=== PATIENT | female | born 1940 | race Two or more races ===

== ENCOUNTER 2017-06-17 23:12 | Inpatient (IN) | payer OTHER ==
[~2017-06-17] VITALS: Ht 154.9 cm; Wt 61.2 kg
--- NOTE | 2017-06-17 23:17 | NUR ---
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 WAITING FOR MD ROSE.
[2017-06-17 23:38] LABS: BASOPHILS % (AUTO) 0.2 % (0.0-2.0); EOSINOPHILS # (AUTO) 0.1 /CMM (0.0-0.7); EOSINOPHILS % (AUTO) 1.8 % (0.0-6.0); HEMATOCRIT 41 % (33-45); HEMOGLOBIN 13.8 g/dL (11.5-14.8); LYMPHOCYTES # (AUTO) 2.2 /CMM (0.8-4.8); LYMPHOCYTES % (AUTO) 27.1 % (20.0-44.0); MEAN CORPUSCULAR HEMOGLOBIN 30 PG (26.0-33.0); MEAN CORPUSCULAR HGB CONC 34 g/dl (31.0-36.0); MEAN CORPUSCULAR VOLUME 87 fL (82-100); MONOCYTES # (AUTO) 0.6 /CMM (0.1-1.30); MONOCYTES % (AUTO) 7.1 % (2.0-12.0); NEUTROPHILS # (AUTO) 5.1 /CMM (1.8-8.9); NEUTROPHILS % (AUTO) 63.8 % (43.0-81.0); PLATELET COUNT (AUTO) 191 /CMM (150-450); RDW COEFFICIENT OF VARIATION 13.5 (11.5-15.0); WHITE BLOOD COUNT (AUTO) 7.9 K/uL (4.3-11.0)
--- NOTE | 2017-06-17 23:39 | NUR ---
BLOOD SENT TO LAB
[2017-06-17 23:52] LABS: CALCIUM, SERUM 9.3 mg/dL (8.5-10.1); CARBON DIOXIDE 27 mmol/L (21-32); CHLORIDE 105 mmol/L (98-107); CREATININE 0.7 mg/dL (0.6-1.3); GLUCOSE 137 mg/dL (74-106); POTASSIUM 3.8 mmol/L (3.5-5.1); SODIUM SERUM 140 mmol/L (136-145); UREA NITROGEN, BLOOD 20 mg/dL (7-18)
[2017-06-17] MEDS ORDERED: LISI10TA5 PO (23:56)
[2017-06-17] MEDS ORDERED: AMLO10TA2 PO (23:56)
[2017-06-17] MEDS ORDERED: ASPI81TA2 PO (23:56)
--- NOTE | 2017-06-17 23:59 | NUR ---
PAGED DR. BOSCH
[2017-06-18] VITALS (11 sets, daily range): BP systolic 136–179; BP diastolic 78–108
[2017-06-18 00:05] LABS: B-TYPE NATRIURETIC PEPTIDE 108 PG/ML (0-125); INR 0.95 (0.87-1.13); PROTHROMBIN TIME 9.9 SECS (9.5-12.7)
[2017-06-18 00:21] LABS: TROPONIN I < 0.017 ng/mL (0.00-0.056)
--- NOTE | 2017-06-18 01:30 | NUR ---
REPORT GIVEN TO DONTAE CHAIDEZ FOR CONTINUATION OF CARE.
--- NOTE | 2017-06-18 01:35 | NUR ---
PT TRANSFERED TO VIA [facility]ULT[facility]
--- NOTE | 2017-06-18 01:40 | NUR ---
VACUUM TESTER CANS OPENING NOTES: RECEIVED PT WITH ROBBIE FROM ER NURSE, LOS. PT IS A/OX3-4 AND IS FRENCH SPEAKING ONLY. ROBBIE DID ALL THE TRANSLATING AT BEDSIDE. PT IS ON TELE BOX. INFORMED PT THAT SHE IS NPO EXCEPT MEDS. PT HAS IV ON L AC #20G AND IS PATENT AND INTACT. WILL START ON FLUIDS SOON ONCE IV BAG IS OBTAINED FROM GOVERNMENT TEACHER. WILL CONTINUE TO MONITOR PT.
[2017-06-18] MEDS ORDERED: ACETAMINOPHEN 325 MG TABLET PO PRN (02:00)
[2017-06-18] MEDS ORDERED: METOPROLOL TARTRATE 25 MG TABLET ONE (02:03)
[2017-06-18] MEDS: METOPROLOL TARTRATE 25 MG TABLET PO SCH ×3 (02:07→16:40)
[2017-06-18] MEDS ORDERED: IV PREMIX 0.45% NS + KCL 1,000 ML IV ONE (02:10)
--- NOTE | 2017-06-18 02:35 | NUR ---
CHEMICAL PROCESS PROJECT ENGINEER NOTES: HAD TO MANUALLY ADMINISTER IV BAG SINCE IT WAS OVERRODE BY NURSING DIESEL POWER SHOVEL OPERATOR.
--- NOTE | 2017-06-18 07:10 | NUR ---
RN NOTES PT IS RESTING IN BED COMFORTABLY WITH ROBBIE AT THE BEDSIDE. PT ON RA, RESPIRATIONS ARE EVEN AND UNLABORED. IV ON LAC INTACT AND RUNNING KCL 20MEQ 1/2 NS @ 70ML/HR. SAFETY MEASURES ARE IN PLACE, CALL LIGHT IS IN REACH. WILL CONTINUE TO MONITOR.
--- NOTE | 2017-06-18 07:20 | NUR ---
HOME VISIT FIELD CARE MANAGER CLOSING NOTES: ALL NEEDS WERE ATTENDED AND ANTICIPATED FOR. PT IS RESTING IN BED COMFORTABLY. PT IS A/OX3-4 AND IS OMANI SPEAKING ONLY. GRANDSON DID ALL THE TRANSLATING AT BEDSIDE. PT IS ON TELE BOX. TELE BOX READING SHOWS SR 61. INFORMED PT AND GRANDSON THAT SHE IS TO REMAIN NPO PER DR ORDERS. PT HAS IV ON L AC #20G AND IS BEING INFUSED WITH KCL 20MEQ IN IV 0.45 NS AT 70ML/HR. ENDORSED TO AM NURSE FOR NAIN.
[2017-06-18] MEDS ORDERED: PANTOPRAZOLE 40 MG TABLET.DR PO SCH (07:30)
[2017-06-18 08:18] LABS: BASOPHILS % (AUTO) 0.2 % (0.0-2.0); EOSINOPHILS # (AUTO) 0.1 /CMM (0.0-0.7); EOSINOPHILS % (AUTO) 0.7 % (0.0-6.0); HEMATOCRIT 43 % (33-45); HEMOGLOBIN 14.3 g/dL (11.5-14.8); LYMPHOCYTES % (AUTO) 22.9 % (20.0-44.0); MEAN CORPUSCULAR HEMOGLOBIN 30 PG (26.0-33.0); MEAN CORPUSCULAR HGB CONC 34 g/dl (31.0-36.0); MEAN CORPUSCULAR VOLUME 88 fL (82-100); MONOCYTES # (AUTO) 0.5 /CMM (0.1-1.30); MONOCYTES % (AUTO) 5.5 % (2.0-12.0); NEUTROPHILS # (AUTO) 6.3 /CMM (1.8-8.9); NEUTROPHILS % (AUTO) 70.7 % (43.0-81.0); PLATELET COUNT (AUTO) 195 /CMM (150-450); RDW COEFFICIENT OF VARIATION 13.3 (11.5-15.0); RED BLOOD CELL COUNT(AUTO) 4.86 MIL/uL (4.0-5.2); WHITE BLOOD COUNT (AUTO) 8.9 K/uL (4.3-11.0)
[2017-06-18] MEDS ORDERED: ATOR40TA PO (08:29)
[2017-06-18] MEDS ORDERED: METO25TA20 PO (08:29)
[2017-06-18 08:31] LABS: CALCIUM, SERUM 9.1 mg/dL (8.5-10.1); CARBON DIOXIDE 25 mmol/L (21-32); CHLORIDE 106 mmol/L (98-107); CREATININE 0.6 mg/dL (0.6-1.3); GLUCOSE 100 mg/dL (74-106); POTASSIUM 4.3 mmol/L (3.5-5.1); SODIUM SERUM 144 mmol/L (136-145); UREA NITROGEN, BLOOD 13 mg/dL (7-18)
[2017-06-18] MEDS ORDERED: ASPIRIN 81 MG TAB.CHEW PO SCH ×2 (09:00)
[2017-06-18] MEDS ORDERED: LISINOPRIL (10MG) 10 MG TABLET PO SCH (09:00)
[2017-06-18] MEDS ORDERED: ENOXAPARIN SODIUM 60 MG/0.6 ML DISP.SYRIN SQ SCH (09:00)
[2017-06-18] MEDS ORDERED: ATORVASTATIN 40 MG TABLET PO SCH (09:00)
[2017-06-18] MEDS ORDERED: AMLODIPINE BESYLATE 10 MG TABLET PO SCH (09:00)
[2017-06-18 09:07] LABS: CHOLESTEROL 267 mg/dL (<200); HDL CHOLESTEROL 40 mg/dL (40-60); LDL 172 mg/dL (0-99); TRIGLYCERIDES 190 mg/dL (30-150)
[2017-06-18 09:09] LABS: THYROID STIMULATING HORMONE 2.199 uIU/mL (0.358-3.74)
[2017-06-18 09:31] LABS: PHOSPHORUS 3.3 mg/dL (2.5-4.9)
--- NOTE | 2017-06-18 18:32 | NUR ---
RN NOTES PT IS RESTING IN BED, COMFORTABLY. PT ON RA, RESPIRATIONS ARE EVEN AND UNLABORED. IV ON LAC INTACT AND PATENT, RUNNING KCL 20 MEQ IN 1/2NS @ 70ML/HR. ALL MEDS WERE GIVEN ORDERED AND ALL PT NEEDS MET. PT AWAITING TO BE TRANSFERRED TO ANOTHER HOSPITAL FOR CARDIAC PROCEDURE. SAFETY MEASURES ARE IN PLACE, CALL LIGHT IS IN REACH. WILL ENDORSE TO PROTECTIVE SIGNAL INSTALLER HELPER RN FOR CONTINUITY OF CARE.
--- NOTE | 2017-06-18 19:30 | NUR ---
RN OPENING NOTES PATIENT IS IN BED, ALERT AND ORIENTED X4, GE[place]GI[place]/LEBANESE SPEAKING. FAMILY PRESENT AT BEDSIDE. VS STABLE. NO C/O PAIN AT THIS TIME. RESPIRATIONS ARE EVEN AND UNLABORED. IV ON LAC INTACT AND PATENT. INFUSING KCL 20 MEQ IN 1/2NS @ 70ML/HR. NO REDNESS OR INFILTRATION NOTED. BED IN LOW AND LOCKED POSITION. SIDE RAILS X2. CALL LIGHT WITHIN EASY REACH. WILL CONTINUE MONITOR AND ASSESS DURING THE SHIFT.
--- NOTE | 2017-06-18 22:20 | NUR ---
RN CLOSING NOTE PATIENT TRANSFERRED TO [facility] FOR CARDIAC CATH PROCEDURE. PICKED UP BY AMBULANCE. ALERT AND ORIENTED X4. FAMILY PRESENT AT BEDSIDE. VS STABLE. NO ACUTE DISTRESS NOTED. NO C/O ANY PAIN AT THIS TIME. BELONGINGS PACKED AND GIVEN TO THE PATIENT. REPORT GIVEN TO DM LAW. PATIENT REFUSED FLU AND PNU VACCINES. ALL MEDICATIONS GIVEN PER MD ORDER.
== END 2017-06-18 22:35 | disposition short-term general hospital (02) | DRG 190 ==
LOC: ER 23:15 → TELE 06-18 01:14
PROVIDERS: ADMIT Internal Medicine; ATTEND Internal Medicine
DX: I21.4 Non-ST elevation (NSTEMI) myocardial infarction (principal); I10 Essential (primary) hypertension; Z79.899 Other long term (current) drug therapy; Z79.82 Long term (current) use of aspirin
CPT/HCPCS: 36415; 71010-TC; 80048-TC; 80061-TC; 82306; 83880; 84100-TC; 84439-TC; 84443-TC; 84484-TC; 85025-TC; 85730-TC; 87081-TC; 93307-TC; J1650; J3480; J3490

== ENCOUNTER 2024-05-29 22:05 | Emergency (ER) | payer MEDICARE, OTHER ==
[~2024-05-29] VITALS: Ht 162.6 cm; Wt 68.0 kg
[~2024-05-29 22:05] MED LIST: AMLO-213 PO; ASPI-1169 PO; ATOR40TA PO; LISI10TA29 PO; METO25TA20 PO
[2024-05-29] MEDS ORDERED: hydrALAZINE HCL IV 20 MG VIAL ONE (22:36)
[2024-05-29] MEDS: hydrALAZINE HCL IV 20 MG VIAL IV ONE (22:37)
[2024-05-29 22:38] LABS: BASOPHILS % (AUTO) 0.6 % (0.0-2.0); EOSINOPHILS # (AUTO) 0.3 K/uL (0.0-0.7); EOSINOPHILS % (AUTO) 5.3 % (0.0-6.0); HEMATOCRIT 41 % (33-45); HEMOGLOBIN 13.7 g/dL (11.5-14.8); LYMPHOCYTES # (AUTO) 1.6 K/uL (0.8-4.8); LYMPHOCYTES % (AUTO) 23.6 % (20.0-44.0); MEAN CORPUSCULAR HEMOGLOBIN 30 PG (26.0-33.0); MEAN CORPUSCULAR HGB CONC 34 g/dl (31.0-36.0); MEAN CORPUSCULAR VOLUME 89 fL (82-100); MONOCYTES # (AUTO) 0.6 K/uL (0.1-1.30); NEUTROPHILS % (AUTO) 61.5 % (43.0-81.0); PLATELET COUNT (AUTO) 168 K/uL (150-450); RED CELL DISTRIBUTION WIDTH 14.2 % (11.5-15.0); WHITE BLOOD COUNT (AUTO) 6.6 K/uL (4.3-11.0)
[2024-05-29 22:46] LABS: CALCIUM, SERUM 9.3 mg/dL (8.5-10.1); CARBON DIOXIDE 30 mmol/L (21-32); CHLORIDE 102 mmol/L (98-107); CREATININE 0.7 mg/dL (0.6-1.3); GLUCOSE 126 mg/dL (74-106); POTASSIUM 4.2 mmol/L (3.5-5.1); SODIUM SERUM 137 mmol/L (136-145); UREA NITROGEN, BLOOD 18 mg/dL (7-18)
[2024-05-29 22:52] LABS: ALANINE AMINOTRANSFERASE 33 U/L (12-78); ALBUMIN 3.9 g/dL (3.4-5.0); ALKALINE PHOSPHATASE 51 U/L (46-116); ASPARTATE AMINOTRANSFERASE 16 U/L (15-37); BILIRUBIN,DIRECT 0.1 mg/dL (0.0-0.2); BILIRUBIN,TOTAL 0.3 mg/dL (0.2-1.0); INR 1.05 (0.91-1.10); PARTIAL THROMBOPLASTIN TIME 25.5 SEC (24.3-34.3); PROTHROMBIN TIME 11.1 SECS (9.2-11.1); TOTAL PROTEIN, SERUM 7.6 g/dL (6.4-8.2)
[2024-05-30] MEDS ORDERED: hydrALAZINE HCL IV 20 MG VIAL ONE (00:17)
[2024-05-30] MEDS: hydrALAZINE HCL IV 20 MG VIAL IV ONE (00:18)
[2024-05-30 00:34] LABS: APPEARANCE,URINE CLEAR (CLEAR); BILIRUBIN,URINE NEGATIVE (NEGATIVE); BLOOD, URINE NEGATIVE Ery/uL (NEGATIVE); COLOR,URINE YELLOW (YELLOW); KETONES,URINE NEGATIVE (NEGATIVE); LEUKOCYTE ESTERASE ,URINE NEGATIVE (NEGATIVE); NITRITE, URINE NEGATIVE (NEGATIVE); PROTEIN,URINE NEGATIVE (NEGATIVE); UGLUCOSE NEGATIVE (NEGATIVE); UROBILINOGEN,URINE 0.2 EU/dL (0.2)
[2024-05-30 01:20] VITALS: BP 102/68; TEMP 97.8; O2SAT 97
== END 2024-05-30 01:20 | disposition home or self-care (01) ==
LOC: ER 22:07
DX: I16.0 Hypertensive urgency (principal); I10 Essential (primary) hypertension; R42 Dizziness and giddiness; I25.2 Old myocardial infarction; Z79.82 Long term (current) use of aspirin; Z79.899 Other long term (current) drug therapy
CPT/HCPCS: 99285; 96374; 70450; 71045; 93005; 85025; 80048; 80076; 81003; 36415 ×2; 84484 ×2; 85730; 96376; J0360 ×2

== ENCOUNTER 2025-05-16 02:03 | Emergency (ER) | payer MEDICARE, OTHER ==
[~2025-05-16] VITALS: Ht 162.6 cm; Wt 68.0 kg
[2025-05-16] MEDS ORDERED: hydrALAZINE HCL IV 20 MG VIAL ONE (02:30)
[2025-05-16] MEDS: hydrALAZINE HCL IV 20 MG VIAL IV ONE (02:38)
[2025-05-16 02:42] LABS: PLATELET COUNT (AUTO) 176 K/uL (150-450); RED BLOOD CELL COUNT(AUTO) 4.78 MIL/uL (4.0-5.2); RED CELL DISTRIBUTION WIDTH 13.8 % (11.5-15.0); WHITE BLOOD COUNT (AUTO) 6.3 K/uL (4.3-11.0)
[2025-05-16 02:49] LABS: CALCIUM, SERUM 9.4 mg/dL (8.5-10.1); CREATININE 0.9 mg/dL (0.6-1.3); SODIUM SERUM 132 mmol/L (136-145); UREA NITROGEN, BLOOD 21 mg/dL (7-18)
[2025-05-16 02:55] LABS: ASPARTATE AMINOTRANSFERASE 18 U/L (15-37); INR 1.06 (0.91-1.10); TOTAL PROTEIN, SERUM 7.2 g/dL (6.4-8.2)
[2025-05-16 03:51] VITALS: BP 132/80; TEMP 98; O2SAT 99
== END 2025-05-16 03:52 | disposition home or self-care (01) ==
LOC: ER 02:10
DX: I16.0 Hypertensive urgency (principal); I11.9 Hypertensive heart disease without heart failure; R42 Dizziness and giddiness; Z79.82 Long term (current) use of aspirin; Z79.899 Other long term (current) drug therapy
CPT/HCPCS: 99285; 96374; 70450; 71045; 93005; 85025; 80048; 80076; 36415; 84484; 85730; J0360